=== PATIENT | male | born 1960 | race Caucasian/White ===

== ENCOUNTER 2019-06-04 14:05 | Emergency (ER) | payer BC, OTHER ==
[~2019-06-04] VITALS: Ht 182.9 cm; Wt 88.5 kg
[2019-06-04 14:29] LABS: ABSOLUTE NEUTROPHILS 4.2 thou/uL (1.4-8.2); BASOPHILS 0.7 % (0.0-2.0); EOSINOPHILS 1.8 % (0.0-3.0); HEMOGLOBIN 15.5 gm/dL (14.0-18.0); LYMPHOCYTES 13.2 % (24.0-44.0); MCH 33.5 pg (26.0-34.0); MCHC 33.8 g/dL (28.0-37.0); MCV 99.4 fL (80.0-100.0); MONOCYTES 10.6 % (1.0-8.0); PLATELET COUNT 218 thou/uL (150-400); POLYS 73.7 % (36.0-66.0); RBC 4.63 mil/uL (4.50-6.00); RDW 12.4 % (10.5-14.5); WBC 5.7 thou/uL (4.0-11.0)
[2019-06-04 14:30] LABS: URINE BILIRUBIN NEGATIVE (Negative); URINE BLOOD TRACE (Negative); URINE CLARITY CLEAR; URINE COLOR YELLOW; URINE GLUCOSE-RANDOM* NEGATIVE (Negative); URINE KETONES NEGATIVE (Negative); URINE LEUKOCYTES NEGATIVE (Negative); URINE NITRITE NEGATIVE (Negative); URINE PROTEIN (DIPSTICK) NEGATIVE (Negative); URINE SPECIFIC GRAVITY 1.025 (1.005-1.035); URINE UROBILINOGEN 0.2 E.U./dl (0.2-1.0)
[2019-06-04 14:40] LABS: POTASSIUM 3.8 mmol/L (3.5-5.1)
[2019-06-04 15:05] LABS: TOTAL BILIRUBIN 0.6 mg/dL (<0.1-1.0); TOTAL PROTEIN 7.4 g/dL (6.4-8.2)
[2019-06-04] MEDS ORDERED: LIPITOR40 MG PO (15:25)
[2019-06-04] MEDS ORDERED: FLONASE 0.05%50 MCG NASAL (15:26)
[2019-06-04] MEDS ORDERED: ZYRTEC10 M2 PO (15:26)
[2019-06-04 16:05] VITALS: BP 137/76
== END 2019-06-04 16:05 | disposition home or self-care (01) ==
LOC: ER 14:05
PROVIDERS: Emergency Medicine
DX: R10.13 Epigastric pain (principal); E78.5 Hyperlipidemia, unspecified